=== PATIENT | female | born 1985 | race Caucasian/White ===

== ENCOUNTER 2018-05-30 16:36 | Emergency (ER) | payer MEDICAID ==
[~2018-05-30] VITALS: Ht 170.2 cm; Wt 96.9 kg
[~2018-05-30 16:36] MED LIST: LITH150C PO; LITH300C PO
[2018-05-30 16:43] VITALS: BP 112/75
== END 2018-05-30 17:24 | disposition home or self-care (01) ==
LOC: ED 17:05
DX: K02.9 Dental caries, unspecified (principal); K08.89 Other specified disorders of teeth and supporting structures; F17.200 Nicotine dependence, unspecified, uncomplicated; Z88.0 Allergy status to penicillin
CPT/HCPCS: 99283

== ENCOUNTER 2018-06-09 18:03 | Emergency (ER) | payer MEDICAID ==
[~2018-06-09] VITALS: Ht 170.2 cm; Wt 99.0 kg
[2018-06-09 18:11] VITALS: BP 129/75
[2018-06-09] MEDS ORDERED: DIPHENHYDRAMINE 50 MG CAPSULE ONE (18:26)
[2018-06-09] MEDS ORDERED: FAMOTIDINE 20 MG TABLET ONE (18:27)
[2018-06-09] MEDS ORDERED: DIPHENHYDRAMINE 25 MG CAPSULE PO ONE (18:30)
[2018-06-09] MEDS ORDERED: FAMOTIDINE 20 MG TABLET PO ONE (18:30)
--- NOTE | 2018-06-09 19:10 | NUR ---
DECREASED FACIAL REDNESS AND PT STATES THE BURNING IN HER FACE HAS DECREASED
== END 2018-06-09 19:18 | disposition home or self-care (01) ==
LOC: ED 18:15
DX: L27.0 Generalized skin eruption due to drugs and medicaments taken internally (principal); Z88.0 Allergy status to penicillin
CPT/HCPCS: 99284; J7512; Q0163